=== PATIENT | male | born 1985 | race Caucasian/White ===

== ENCOUNTER 2017-10-05 06:09 | Day surgery (SDC) | payer MEDICAID ==
[~2017-10-05] VITALS: Ht 172.7 cm; Wt 95.5 kg
[~2017-10-05 06:09] MED LIST: ALBU8.5H8 IH; BECL8.7A7 PUFF; LORA10TA7 PO
[2017-10-05] MEDS ORDERED: EPINEPHrine 1:1,000 [1 MG/ML] AMP IM ONE (06:10)
[2017-10-05] MEDS ORDERED: ALBUTEROL SULFATE 2.5 MG/0.5 ML NEB SOLUTION NEB ONE (06:10)
[2017-10-05] MEDS ORDERED: LIDOCAINE HCL 4% 50 ML SOLUTION TP ONE (06:10)
[2017-10-05] MEDS ORDERED: LIDOCAINE HCL 2% 30 ML JELLY TP ONE (06:10)
[2017-10-05] MEDS ORDERED: BENZOCAINE 20% 50 MCG/SPRAY 57 GM TP ONE (06:10)
[2017-10-05] MEDS ORDERED: SODIUM CHLORIDE 0.9% 1,000 ML IV ONE ×2 (06:17→07:00)
[2017-10-05] MEDS ORDERED: MIDAZOLAM HCL 2 MG/2 ML VIAL ONE (07:39)
[2017-10-05] MEDS ORDERED: FentaNYL CITRATE-PF 100 MCG/2 ML VIAL ONE (07:40)
[2017-10-05] MEDS ORDERED: MethylPREDNISolone SOD SUCC 125 MG/2 ML VIAL IVP ONE (08:45)
[2017-10-05] MEDS ORDERED: MethylPREDNISolone SOD SUCC 125 MG/2 ML VIAL ONE (08:56)
[2017-10-05] MEDS ORDERED: OXYGEN THERAPY IH SCH (20:00)
== END 2017-10-05 10:00 | disposition home or self-care (01) ==
LOC: SURGERY 06:09
PROVIDERS: ATTEND Internal Medicine Critical Care Medicine
DX: J38.4 Edema of larynx (principal); B37.0 Candidal stomatitis; J84.111 Idiopathic interstitial pneumonia, not otherwise specified; J45.909 Unspecified asthma, uncomplicated; F12.90 Cannabis use, unspecified, uncomplicated; F11.21 Opioid dependence, in remission; F17.210 Nicotine dependence, cigarettes, uncomplicated; Z79.899 Other long term (current) drug therapy; Z98.890 Other specified postprocedural states
CPT/HCPCS: 31623; 31624; 71045; 87015; 87070; 87205; 87220; J0171; J2250; J2930; J3010; J7030